=== PATIENT | male | born 2000 | race Two or more races ===

== ENCOUNTER 2018-11-21 11:35 | Emergency (ER) | payer BC ==
[~2018-11-21] VITALS: Ht 188 cm; Wt 86.2 kg
[2018-11-21] MEDS ORDERED: IBUPROFEN 600 MG TAB PO STA (12:05)
--- NOTE | 2018-11-21 14:20 | NUR ---
PT RESTING, VITAL SIGNS STABLE, FAMILY AT BEDSIDE. PT VOICES NO COMPLAINTS AT THIS TIME.
--- NOTE | 2018-11-21 15:13 | Diagnostic Imaging Report ---
CT SOFT TISSUE NECK WITH-HOPD HISTORY: Throat swelling COMPARISON: None. TECHNIQUE: Axial CT images were obtained through the neck with intravenous, iodine based contrast. Coronal and sagittal reconstructions obtained from the axial data. One or more of the following dose reduction techniques were used: Automated exposure control, adjustment of the mA and/or kV according to patient size, and/or utilization of iterative reconstruction technique. 100 mL of Isovue-370 were administered. DISCUSSION: The adenoid, palatine, and lingual tonsils are mildly prominent. Otherwise, the visualized upper aerodigestive tract is unremarkable. No discrete drainable fluid collection is identified. A few mildly prominent bilateral upper jugular chain lymph nodes may be reactive. No other radiographically significant cervical adenopathy is seen. The thyroid gland is unremarkable. The submandibular and parotid glands are unremarkable. The major cervical vessels are unremarkable. The emergency care tech, parapharyngeal, posterior cervical, and perivertebral spaces are unremarkable. The visualized intracranial compartment is grossly unremarkable. The paranasal sinuses are clear. No destructive osseous lesions are seen. The upper lungs are unremarkable. IMPRESSION: 1. Mildly prominent adenoid, palatine, and lingual tonsils. No discrete drainable fluid collection. 2. The visualized upper aerodigestive tract is otherwise unremarkable. 3. Mildly prominent bilateral upper jugular chain lymph nodes may be reactive. Signed by: Dr. Heriberto Blanca M.D. on 11/21/2018 3:10 PM
[2018-11-21 15:37] VITALS: BP 101/59
== END 2018-11-21 15:45 | disposition home or self-care (01) ==
LOC: FSED 11:35
DX: J02.9 Acute pharyngitis, unspecified (principal); K08.89 Other specified disorders of teeth and supporting structures; F17.210 Nicotine dependence, cigarettes, uncomplicated; F12.90 Cannabis use, unspecified, uncomplicated
CPT/HCPCS: 70491; 80048; 83518; 85025; 87400; 99284